=== PATIENT | male | born 1940 | race Caucasian/White ===

== ENCOUNTER → 2016-06-20 | Outpatient (CLI) | payer OTHER | LOC: BHFA 13:00 | PROVIDERS: ATTEND Internal Medicine Interventional Cardiology | DX: R94.31 Abnormal electrocardiogram [ECG] [EKG] (principal); R07.9 Chest pain, unspecified | CPT/HCPCS: 78452; 93017; A9500; J2785 ==

== ENCOUNTER 2016-09-20 19:34 | Observation (INO) | payer OTHER ==
[2016-09-20] MEDS ORDERED: NS 1,000 ML IV ONE (20:04)
--- NOTE | 2016-09-20 20:08 | EDPHY ---
H & P Stated Complaint: CT ABD FOR LOW ABD PAIN X8 DAYS, SENT TO ER BY DR ESCALERA Time Seen by Provider: 09/20/16 19:45 HPI/ROS: CHIEF COMPLAINT: Abdominal pain HISTORY OF PRESENT ILLNESS: Patient is a 76-year-old man who has been complaining of abdominal pain for the last 10 days. He states that it started out as a feeling of reflux. Then progressed increasing pain and nausea but no vomiting. He has had normal bowel movements. He was seen by his primary [address] Escalera who obtained lab work. The results came back Relatively unremarkable except for an elevated lipase of 500. Today he was sent here for CT scanning which reveals a perforated ulcer on the posterior stomach with small air bubbles and possible foreign body. Dr. Escalera requested Donald Go or Dr. Cummins for consultation. REVIEW OF SYSTEMS: Constitutional: denies: chills, fever, recent illness, recent injury EENTM: denies: blurred vision, double vision, nose congestion Respiratory: denies: cough, shortness of breath Cardiac: denies: chest pain, irregular heart rate, lightheadedness, palpitations Gastrointestinal/Abdominal: See HPI Genitourinary: denies: dysuria, frequency, hematuria, pain Musculoskeletal: denies: joint pain, muscle pain Skin: denies: lesions, rash, jaundice, bruising Neurological: denies: headache, numbness, paresthesia, tingling, dizziness, weakness Hematologic/Lymphatic: denies: blood clots, easy bleeding, easy bruising Immunologic/allergic: denies: HIV/AIDS, transplant EXAM: GENERAL: Well-appearing, well-nourished and in no acute distress. HEAD: Atraumatic, normocephalic. EYES: Pupils equal round and reactive to light, extraocular movements intact, sclera anicteric, conjunctiva are normal. ENT: TMs normal, nares patent, oropharynx clear without exudates. Moist mucous membranes. NECK: Normal range of motion, supple without lymphadenopathy or JVD. LUNGS: Breath sounds clear to auscultation bilaterally and equal. No wheezes rales or rhonchi. HEART: Regular rate and rhythm without murmurs, rubs or gallops. ABDOMEN: Pain, no significant tenderness or distension, BACK: No CVA tenderness, no spinal tenderness, step-offs or deformities EXTREMITIES: Normal range of motion, no pitting or edema. No clubbing or cyanosis. NEUROLOGICAL: Cranial nerves II through XII grossly intact. Normal speech, normal gait. 5/5 strength, normal movement in all extremities, normal sensation PSYCH: Normal mood, normal affect. SKIN: Warm, dry, normal turgor, no visible rashes or lesions. Source: Patient Exam Limitations: No limitations - Personal History Current Tetanus/Diphtheria Vaccine: Yes - Medical/Surgical History Hx Asthma: No Hx Chronic Respiratory Disease: No Hx Diabetes: No Hx Cardiac Disease: No Hx Renal Disease: No Hx Cirrhosis: No Hx Alcoholism: No Hx HIV/AIDS: No Hx Splenectomy or Spleen Trauma: No Other PMH: CATARACT SURG, TONSILS, SCIATICA, L5-S1 PAIN, BICUSPID VALVE, [place] T[place] FEVER - Family History Significant Family History: No pertinent family hx - Social History Smoking Status: Former smoker Alcohol Use: Sober Drug Use: None Constitutional: Initial Vital Signs Temperature (C) 36.7 C 09/20/16 19:45 Heart Rate 74 09/20/16 19:45 Respiratory Rate 18 09/20/16 19:45 Blood Pressure 139/92 H 09/20/16 19:45 O2 Sat (%) 97 09/20/16 19:45 O2 Delivery Mode Room Air Allergies/Adverse Reactions: No Known Allergies Allergy (Unverified 09/20/16 19:43) Home Medications: Medication Instructions Recorded Aspirin [Aspirin 81mg (*)] 81 mg PO DAILY 09/20/16 Herbals/Supplements -Info Only 1 ea PO DAILY 09/20/16 Melatonin [Melatonin 3 MG (*)] 10 mg PO HS 09/20/16 Pantoprazole Sodium [Protonix 40mg 40 mg PO DAILY 09/20/16 (*)] Medical Decision Making ED Course/Re-evaluation: Have paged Dr. Go service for courtesy consultation. They are not weatherization technician today. 8:30 p.m. I spoke with Dr. Katarina Cummins who will come to evaluate the patient. Differential Diagnosis: Partial list of the Differential diagnosis considered include but were not limited to; peptic ulcer, perforation, obstruction , pancreatitis and although unlikely based on the history and physical exam, I also considered ischemia, over this, biliary disease. Critical Care Time: Critical care time spent by me, Dr. Sanchez exclusive with this patient was 35 minutes, exclusive of the PA time exclusive of procedures. The organ system that was at risk was GI and I gave IV fluids, antibiotics, consultation to prevent worsening of the patient's condition - Data Points Laboratory Results: Laboratory Results 09/20/16 20:00 09/20/16 20:00 Medications Given: Discontinued Medications Sodium Chloride (Ns) 1,000 mls @ 0 mls/hr IV ONCE ONE PRN Reason: Wide Open Stop: 09/20/16 20:05 Last Admin: 09/20/16 21:09 Dose: 1,000 mls Ertapenem 1 gm/ Sodium (Chloride) 100 mls @ 200 mls/hr IV EDNOW ONE PRN Reason: Protocol Stop: 09/20/16 21:00 Last Admin: 09/20/16 21:09 Dose: 100 mls Pantoprazole Sodium 40 mg/ (Sodium Chloride) 100 mls @ 200 mls/hr IV BID [facility] Stop: 03/20/17 10:59 Last Admin: 09/21/16 11:30 Dose: 100 mls Departure - Departure Disposition: [facility] Inpatient Acute Clinical Impression: Perforated ulcer Condition: Fair
[2016-09-20 20:13] LABS: % IMMATURE GRANULYOCYTES 0.3 % (0.0-1.1); ABSOLUTE IMMATURE GRANULOCYTES 0.02 10^3/uL (0.00-0.10); ADD DIFF? NO; ADD MORPH? NO; ADD SCAN? NO; ATYPICAL LYMPHOCYTE FLAG 0 (0-99); FRAGMENT RBC FLAG 0 (0-99); HEMATOCRIT 41.9 % (40.0-51.0); HEMOGLOBIN 14.2 g/dL (13.7-17.5); LEFT SHIFT FLG 0 (0-99); LIPEMIA HEMOLYSIS FLAG 90 (0-99); MEAN CELL HEMOGLOBIN 31.3 pg (27.9-34.1); MEAN CELL HEMOGLOBIN CONCENTR. 33.9 g/dL (32.4-36.7); MEAN CELL VOLUME 92.5 fL (81.5-99.8); MEAN PLATELET VOLUME 9.8 fL (8.7-11.7); PLATELET CLUMPS FLAG 10 (0-99); PLATELET COUNT 168 10^3/uL (150-400); RED BLOOD CELL COUNT 4.53 10^6/uL (4.40-6.38); RED CELL DISTRIBUTION WIDTH 11.8 % (11.5-15.2)
[2016-09-20] MEDS ORDERED: ERTAPENEM 1 GM in NS 100 ML IV ONE (20:31)
[2016-09-20 20:33] LABS: ALANINE AMINOTRANSFERASE 38 IU/L (21-72); ALBUMIN 3.7 g/dL (3.5-5.0); ALKALINE PHOSPHATASE 48 IU/L (38-126); ANION GAP 11 mEq/L (8-16); ASPARTATE AMINOTRANSFERASE 24 IU/L (17-59); BILIRUBIN,TOTAL 0.5 mg/dL (0.1-1.4); BILIRUBIN-CONJUGATED 0.4 mg/dL (0.0-0.5); BILIRUBIN-UNCONJUGATED 0.1 mg/dL (0.0-1.1); CALCIUM 8.8 mg/dL (8.5-10.4); CARBON DIOXIDE 24 mEq/l (22-31); CHLORIDE 103 mEq/L (97-110); CREATININE 0.9 mg/dL (0.7-1.3); GLOMERULAR FILTRATION RATE > 60; GLUCOSE 99 mg/dL (70-100); POTASSIUM 4.2 mEq/L (3.5-5.2); SODIUM 138 mEq/L (134-144); TOTAL PROTEIN 6.3 g/dL (6.3-8.2)
[2016-09-20] MEDS ORDERED: ONDANSETRON 4 MG/2 ML VIAL IVP PRN (21:12)
--- NOTE | 2016-09-20 21:57 | GHP ---
[f rep st] HISTORY AND PHYSICAL DATE OF ADMISSION: 09/20/2016 CHIEF COMPLAINT: Microperforation. HISTORY OF PRESENT ILLNESS: The patient is a 76-year-old man who had been complaining of abdominal pain for approximately 10 days. He noticed he had increased reflux. He was seen by his primary car e provider and had an elevated lipase. Due to his persistent discomfort, he was sent for a CT scan which revealed a microperforation of an ulcer on the posterior stomach with possible foreign body. PAST MEDICAL HISTORY: Bicuspid aortic valve. PAST SURGICAL HISTORY: Tonsillectomy and cataract surgery. SOCIAL HISTORY: He quit using all tobacco products approximately 25 years ago. He has not used nagi gs or alcohol. FAMILY HISTORY: No significant family history. REVIEW OF SYSTEMS: 10-point review of systems negative. PHYSICAL EXAMINATION: VITAL SIGNS: 36.7, 74,139/92, 18, 97%. GENERAL: Pleasant, well-nourished, we ll-groomed man appears comfortable sitting on bed. HEENT: Normocephalic. No gross hearing deficits . Mucous membranes moist. Pupils equal and round. No scleral icterus. LUNGS: Clear to auscultat ion bilaterally. No increased work of breathing. CARDIAC: Regular rate. No peripheral edema. AB DOMEN: Bowel sounds are present. He is soft and essentially nontender to palpation. No abdominal surgical incisions. MUSCULOSKELETAL: Normal nails. SKIN: Warm and dry. LABORATORY DATA: Results reviewed. I personally reviewed his lab work which is all within normal l imits. I also reviewed his CT scan which shows small amount of extraluminal bubbles on the posterio r aspect of the stomach. There was a linear density that appears to be within the stomach; it is hig h density. IMPRESSION: The patient is a 76-year-old man who has a small perforated area on his stomach. He is essentially asymptomatic and his white count is now normal. He is having normal bowel movements and gastrointestinal function. PLAN: I will keep him n.p.o. I have ordered an abdominal x-ray for the morning in the event that th e foreign body passes. He had received Invanz in the ER. I have discussed the case with Dr. Torres who will also review it tomorrow. One option may be to do a scope and retrieve the foreign body, as this may have contributed to the perforation on the stomach. He is certainly not toxic at this time and I do not feel that it is appropriate to bentley him to the operating room. I will continue to fol low him. /[id number]/MODL
[2016-09-20] MEDS: D5W 1/2 NS W/ 20 KCl/L 1,000 ML IV SCH (23:07)
[2016-09-21] MEDS: D5W 1/2 NS W/ 20 KCl/L 1,000 ML IV SCH (08:45)
--- NOTE | 2016-09-21 10:23 | SOAPPROG ---
SOAP Progress Note Assessment/Plan: Assessment: HD # 2 for perforated ulcer/microperf with question of foreign body He is asymptomatic WBC normal Lipase Normal I appreciate Dr. Torres seeing him. Unsure if foreign body contributed to perforation or if ulcer with fb. No evidence of fb on plain film S: Feeling well. Essentially no pain O: Sitting in bed, appears well Plan: 09/21/16 10:22 09/21/16 10:44 Objective: Vital Signs Temp Pulse Resp BP Pulse Ox 37.2 C 74 18 139/91 H 93 09/21/16 07:11 09/21/16 07:11 09/21/16 07:11 09/21/16 07:11 09/21/16 07:11 09/20/16 09/21/16 09/22/16 05:59 05:59 05:59 Intake Total 200 Output Total 400 Balance -200 Physical Exam - Physical Exam General Appearance: WD/WN, alert, no apparent distress EENT: PERRL/EOMI, normal ENT inspection Neck: non-tender Respiratory: chest non-tender, lungs clear Cardiac/Chest: regular rate, rhythm Abdomen: normal bowel sounds, non-tender, soft Skin: normal color, warm/dry Extremities: normal range of motion ICD10 Worksheet Patient Problems: Problems Problem Status Onset Perforated ulcer Acute
[2016-09-21] MEDS ORDERED: PANTOPRAZOLE SODIUM 40 MG in NS 100 ML IV SCH (11:00)
--- NOTE | 2016-09-21 12:05 | GCON ---
[f rep st] CONSULTATION INPATIENT CONSULTATION REFERRING PHYSICIAN: Katarina Cummins MD REASON FOR CONSULTATION: Abdominal pain and abnormal imaging of the GI tract. HISTORY OF PRESENT ILLNESS: Briefly, the patient is a pleasant 76-year-old healthy male who present ed to the emergency room on 09/20/2016 for the evaluation of abdominal pain. He reports he was in h is usual state of health until approximately 2 weeks ago. At that time, he began having epigastric pain, back pain, nausea. These pain symptoms were gradually worsening over the last 2 weeks. Durin g this time, he was in a remote [facility] cabin. He was using Tums, baking soda, and other oral ac id-binding agents to help with symptoms. He found these to be somewhat effective. Upon returning [facility], he called his primary care physician to describe his complaints. He underwent CAT scan. CAT scan revealed potential microperforation of the stomach and possible pancreatitis, and he was a sked to present to the emergency room for evaluation. He reports no fevers, chills, sweats. Despite nausea, he reports no vomiting. He has felt more com fortable with eating liquid, as opposed to solid, foods. He believes the pain was at its worst appr oximately 5-7 days ago and has gradually been improving since. He has not had any prior history of similar symptoms. He reports no history of pancreatitis or pept ic disease to his knowledge. He does, however, use low-dose aspirin on a daily basis for the manage ment of underlying migraine disease. ALLERGIES: None. MEDICATIONS: Outpatient medicines included melatonin and low-dose aspirin as well as recent use of [id number] acid-binding agents. SOCIAL HISTORY: He does not smoke cigarettes. He uses alcohol rarely. He does not use drugs. FAMILY HISTORY: Negative for stomach cancer, to his knowledge. PAST MEDICAL HISTORY: Includes bicuspid aortic valve as well as migraines. PAST SURGICAL HISTORY: Includes tonsillectomy and cataract surgery. REVIEW OF SYSTEMS: A 10-point review was undertaken with the patient. The pertinent positives and negatives are documented in the History of Present Illness. PHYSICAL EXAMINATION: GENERAL: This is a well-developed male in no apparent distress. HEENT: His pupils are equal, round, reactive to light and accommodation. His sclerae are nonicteric. His claudy pharynx is clear. HEART: Regular without murmur. LUNGS: Clear to auscultation with good respirato ry effort. ABDOMEN: Soft, nontender. He has normoactive bowel sounds. He has no abdominal incisi ons. EXTREMITIES: Joints reveal no swelling or arthritis. SKIN: Warm and dry without bruising. PSYCH: Normal mood and affect. NEURO: Grossly nonfocal. LABORATORY TESTING: Reveals white count of 6.6, hemoglobin of 14.2, hematocrit of 41.9, platelet co unt of 168. Sodium of 138, potassium of 4.2, chloride of 103, bicarb of 24, BUN of 16, creatinine o f 0.9. AST, ALT, alk phos totally normal. Lipase normal. H pylori antibody has returned positive. CT scan of the abdomen and pelvis on 09/20/2016 reveals findings consistent with microperforation of the posterior wall of the stomach, as well as some minimal pancreatic inflammation. IMPRESSION AND RECOMMENDATIONS: I suspect the patient has a large gastric ulcer, perhaps complicate d by microperforation. He has clinical symptoms and x-ray testing suggestive of this. In addition, his serum testing for Helicobacter pylori has been noted to be positive, and this is in the setting of taking a chronic barrier breaker in the form of low-dose aspirin. The differential diagnosis mi ght also include malignancy, ischemia, etc. The overall clinical features and imaging features of h is presentation would be less consistent with malignancy. At this time, I do not recommend addition al endoscopic evaluation for his symptoms. In the setting of microperforation, it may not be safe t o insufflate the stomach. Instead, I recommend the patient be on a proton pump inhibitor b.i.d. We can arrange treatment for his Helicobacter pylori infection. A repeat CAT scan in 2-3 weeks may be beneficial. A 10- to 14-day course of antibiotics in the setting of microperforation is likely to be beneficial. Pending his clinical course and surveillance imaging, we will then plan upper endosc opy. Upper endoscopy is likely to be less complicated if we allow this ulcerated area to undergo so me healing. We can plan endoscopic evaluation to occur sometime in the next 2-6 weeks. Given his H elicobacter pylori status and likely ulceration, documentation of Helicobacter pylori clearance with breath test or stool antigen testing is indicated. My office can help to arrange this. /[id number]/MODL
[2016-09-21 15:30] VITALS: BP 139/80; PULSE 67; RESP 18; TEMP 98.8; O2SAT 94
[2016-09-21] MEDS ORDERED: PANTOPRAZOLE SODIUM 40 MG TAB PO SCH (21:00)
[2016-09-21] MEDS ORDERED: ERTAPENEM 1 GM in NS 100 ML IV SCH (21:00)
[2016-09-22] MEDS ORDERED: PANTOPRAZOLE SODIUM 40 MG in NS 100 ML IV SCH (09:00)
== END 2016-09-21 17:00 | disposition home or self-care (01) ==
LOC: F3E 21:45
PROVIDERS: ADMIT Surgery; ATTEND Surgery
DX: K25.5 Chronic or unspecified gastric ulcer with perforation (principal)
CPT/HCPCS: 74000; 74150; 99291; G0378; J1335

== ENCOUNTER 2016-10-07 13:57 | Emergency (ER) | payer OTHER ==
[2016-10-07 14:05] VITALS: PULSE 94; TEMP 98.6
--- NOTE | 2016-10-07 14:35 | EDPHY ---
H & P Stated Complaint: n/v, no appetite for a few days, finished PPI Rx, Time Seen by Provider: 10/07/16 14:08 HPI/ROS: CHIEF COMPLAINT: Peptic ulcer disease HISTORY OF PRESENT ILLNESS: Patient is a 76-year-old man who comes to the emergency department complaining of peptic ulcer disease and 1 episode of vomiting last night. The vomiting was nonbloody. He is admitted here to the hospital 2 weeks ago for perforated gastric ulcer. He was seen by Gastroenterology. He also had a positive H pylori. They recommended delayed upper endoscopy due to the micro perforation. The patient had been taking significant amounts of baking soda and Tums. He was discharged on triple therapy but stopped taking his Zantac after 1 week likely due to a miscommunication. He finished his antibiotics a few days ago but states that his symptoms are beginning to return. He denies abdominal pain currently. He is afebrile REVIEW OF SYSTEMS: Constitutional: denies: chills, fever, recent illness, recent injury EENTM: denies: blurred vision, double vision, nose congestion Respiratory: denies: cough, shortness of breath Cardiac: denies: chest pain, irregular heart rate, lightheadedness, palpitations Gastrointestinal/Abdominal: See HPI Genitourinary: denies: dysuria, frequency, hematuria, pain Musculoskeletal: denies: joint pain, muscle pain Skin: denies: lesions, rash, jaundice, bruising Neurological: denies: headache, numbness, paresthesia, tingling, dizziness, weakness Hematologic/Lymphatic: denies: blood clots, easy bleeding, easy bruising Immunologic/allergic: denies: HIV/AIDS, transplant EXAM: GENERAL: Well-appearing, well-nourished and in no acute distress. HEAD: Atraumatic, normocephalic. EYES: Pupils equal round and reactive to light, extraocular movements intact, sclera anicteric, conjunctiva are normal. ENT: TMs normal, nares patent, oropharynx clear without exudates. Moist mucous membranes. NECK: Normal range of motion, supple without lymphadenopathy or JVD. LUNGS: Breath sounds clear to auscultation bilaterally and equal. No wheezes rales or rhonchi. HEART: Regular rate and rhythm without murmurs, rubs or gallops. ABDOMEN: Soft, nontender, normoactive bowel sounds. No guarding, no rebound. No masses appreciated. BACK: No CVA tenderness, no spinal tenderness, step-offs or deformities EXTREMITIES: Normal range of motion, no pitting or edema. No clubbing or cyanosis. NEUROLOGICAL: Cranial nerves II through XII grossly intact. Normal speech, normal gait. 5/5 strength, normal movement in all extremities, normal sensation PSYCH: Normal mood, normal affect. SKIN: Warm, dry, normal turgor, no visible rashes or lesions. Source: Patient Exam Limitations: No limitations - Personal History Current Tetanus/Diphtheria Vaccine: Yes - Medical/Surgical History Hx Asthma: No Hx Chronic Respiratory Disease: No Hx Diabetes: No Hx Cardiac Disease: No Hx Renal Disease: No Hx Cirrhosis: No Hx Alcoholism: No Hx HIV/AIDS: No Hx Splenectomy or Spleen Trauma: No Other PMH: CATARACT SURG, TONSILS, SCIATICA, L5-S1 PAIN, BICUSPID VALVE, [place] TICK FEVER - Family History Significant Family History: No pertinent family hx - Social History Smoking Status: Former smoker Alcohol Use: Sober Drug Use: None Constitutional: Initial Vital Signs Temperature (C) 37 C 10/07/16 14:02 Heart Rate 94 10/07/16 14:02 Respiratory Rate 18 10/07/16 14:02 Blood Pressure 122/72 H 10/07/16 14:02 O2 Sat (%) 96 10/07/16 14:02 O2 Delivery Mode Room Air Allergies/Adverse Reactions: No Known Allergies Allergy (Verified 10/07/16 14:01) Home Medications: Medication Instructions Recorded Herbals/Supplements -Info Only 1 ea PO DAILY 09/20/16 Melatonin [Melatonin 3 MG (*)] 10 mg PO HS 09/20/16 Amoxicillin 1,000 mg PO BID #56 capsule 09/21/16 Clarithromycin 500 mg PO BID #28 tablet 09/21/16 Pantoprazole Sodium [Protonix 40mg 40 mg PO BID #14 tab 09/21/16 (*)] Amoxicillin 1,000 mg PO BID 14 Days 10/07/16 Ondansetron Odt [Zofran Odt 4 mg 4 mg PO Q4 PRN #20 tab 10/07/16 (RX)] Pantoprazole Sodium [Protonix] 40 mg PO HS #30 tablet. 10/07/16 Medical Decision Making ED Course/Re-evaluation: Patient is currently asymptomatic. He describes heartburn sensation at night and last night had 1 episode of vomiting. He is here requesting medication refills. He does not wish to have any workup done. His abdominal exam is nontender benign. He is afebrile and has stable vital signs. I will refill his Zantac and continue his amoxicillin. Typically there is a 14 day course for the antibiotics but on his discharge paperwork Dr. Cummins wrote for him to have the amoxicillin for 4 weeks. I will also give him a prescription for Zofran. He and his are happy with this plan and decline further workup or testing at this time. Differential Diagnosis: Partial list of the Differential diagnosis considered include but were not limited to; medication refill,peptic ulcer disease, perforation, pancreatitis, H pylori and although unlikely based on the history and physical exam, I also considered ischemia, free air, peritonitis, appendicitis, diverticulitis. I discussed these differential diagnoses and the plan with the patient as well as the usual and expected course. The patient understands that the diagnosis is provisional and that in medicine we are not always correct and that further workup is often warranted. Usual and customary warnings were given. All of the patient's questions were answered. The patient was instructed to return to the emergency department should the symptoms at all worsen or return, otherwise to followup with the physician as we discussed. - Data Points Laboratory Results: Laboratory Results 10/07/16 14:17 10/07/16 14:17 10/07/16 10/07/16 14:17 14:17 WBC REJ RBC REJ Hgb REJ Hct REJ MCV REJ MCH REJ MCHC REJ RDW REJ Plt Count REJ Sodium REJ Potassium REJ Chloride REJ Carbon Dioxide REJ Anion Gap REJ BUN REJ Creatinine REJ Estimated GFR REJ Glucose REJ Calcium REJ Departure - Departure Disposition: Home, Routine, Self-Care Clinical Impression: Perforated ulcer, H pylori ulcer, Medication refill Condition: Fair Instructions: Peptic Ulcer (ED), Helicobacter Pylori (ED) Referrals: Nitesh William MD [Primary Care Provider] - As per Instructions Prescriptions: Amoxicillin 1,000 mg PO BID 14 Days Ondansetron Odt [Zofran Odt 4 mg (RX)] 4 mg PO Q4 PRN #20 tab PRN Reason: Nausea & Vomiting Pantoprazole Sodium [Protonix] 40 mg PO HS #30 tablet.
[2016-10-07 14:52] VITALS: BP 103/58; RESP 16; O2SAT 94
== END 2016-10-07 14:52 | disposition home or self-care (01) ==
DX: Z76.0 Encounter for issue of repeat prescription (principal); K27.9 Peptic ulcer, site unspecified, unspecified as acute or chronic, without hemorrhage or perforation; B96.81 Helicobacter pylori [H. pylori] as the cause of diseases classified elsewhere; Z87.891 Personal history of nicotine dependence

== ENCOUNTER → 2018-07-11 | Outpatient (CLI) | payer OTHER | LOC: BHFA 16:15 | PROVIDERS: ATTEND Internal Medicine Cardiovascular Disease | DX: Q23.1 Congenital insufficiency of aortic valve (principal) ==